=== PATIENT | male | born 1985 | race Caucasian/White ===

== ENCOUNTER 2019-11-28 14:17 | Emergency (ER) | payer OTHER ==
[~2019-11-28] VITALS: Ht 182.9 cm; Wt 113.4 kg
[~2019-11-28 14:17] MED LIST: Citrate Of Mag300 ML PO; IBUP800 PO; Norco 10-325 T1 EACH PO; OXYACE5T PO; RXOXYACE PO
[2019-11-28 21:27] LABS: Adenovirus Not Detected (NOT DETECT); Coronavirus 229E Not Detected (NOT DETECT); Coronavirus HKU1 Not Detected (NOT DETECT); Coronavirus NL63 Not Detected (NOT DETECT); Coronavirus OC43 Not Detected (NOT DETECT)
[2019-11-28 21:32] LABS: Bordetella pertussis Not Detected (NOT DETECT); Chlamydophila pneumoniae Not Detected (NOT DETECT); Human Metapneumovirus Not Detected (NOT DETECT); Human Rhinovirus/Enterovirus Not Detected (NOT DETECT); Influenza A/2009-H1 Not Detected (NOT DETECT); Influenza A/H1 Not Detected (NOT DETECT); Influenza A/H3 Not Detected (NOT DETECT); Influenza B Not Detected (NOT DETECT); Mycoplasma pneumoniae Not Detected (NOT DETECT); Parainfluenza Virus 1 Not Detected (NOT DETECT); Parainfluenza Virus 2 Not Detected (NOT DETECT); Parainfluenza Virus 3 Not Detected (NOT DETECT); Parainfluenza Virus 4 Not Detected (NOT DETECT); Respiratory Syncytial Virus Not Detected (NOT DETECT); SARS-Cov-2 (COVID-19), BioFire Detected (NOT DETECT)
[2019-11-28] MEDS ORDERED: AZIT250 PO (21:47)
[2019-11-28] MEDS ORDERED: Tessalon200 MG PO (21:47)
== END 2019-11-28 22:15 | disposition home or self-care (01) ==
LOC: ER 14:17
PROVIDERS: Physician Assistant
DX: U07.1 COVID-19 (principal); R05 Cough; R09.02 Hypoxemia; Z79.899 Other long term (current) drug therapy
CPT/HCPCS: 0202U; 36415; 71046; 83605; 84145; 99283-25

== ENCOUNTER 2019-11-29 18:26 | Emergency (ER) | payer OTHER ==
[~2019-11-29] VITALS: Ht 182.9 cm; Wt 113.4 kg
[~2019-11-29 18:26] MED LIST changes: +AZIT250 PO; +Tessalon200 MG PO
== END 2019-11-29 19:08 | disposition home or self-care (01) ==
LOC: ER 18:26
DX: U07.1 COVID-19 (principal); Z79.899 Other long term (current) drug therapy
CPT/HCPCS: 99283

== ENCOUNTER 2020-08-19 21:25 | Emergency (ER) | payer OTHER ==
[~2020-08-19] VITALS: Ht 182.9 cm; Wt 111.1 kg
[~2020-08-19 21:25] MED LIST changes: +LIDO700A20 TOP; +NAPR500 PO; +Norco 5-325 Ta1 EACH PO
== END 2020-08-20 00:29 | disposition home or self-care (01) ==
LOC: ER 21:25
DX: S46.912A Strain of unspecified muscle, fascia and tendon at shoulder and upper arm level, left arm, initial encounter (principal); X58.XXXA Exposure to other specified factors, initial encounter; Y93.15 Activity, underwater diving and snorkeling
CPT/HCPCS: 73030; 99283-25; A9270

== ENCOUNTER 2021-04-02 12:59 | Emergency (ER) | payer OTHER ==
[~2021-04-02] VITALS: Ht 182.9 cm; Wt 113.4 kg
[2021-04-02 14:46] LABS: BASOPHILS ABSOLUTE AUTO 0.06 K/mm3 (0.00-0.23); BASOPHILS PERCENT AUTO 0 % (0-2); EOSINOPHILS PERCENT AUTO 1 % (0-6); Hematocrit 47.8 % (37.0-53.0); Hemoglobin 16.3 g/dL (13.5-17.5); IMMATURE GRAN ABSOLUTE AUTO 0.04 K/mm3 (0.00-0.10); IMMATURE GRAN PERCENT AUTO 0 % (0-1); LYMPHOCYTES ABSOLUTE AUTO 2.39 K/mm3 (0.84-5.20); LYMPHOCYTES PERCENT AUTO 18 % (21-46); MONOCYTES ABSOLUTE AUTO 1.01 K/mm3 (0.16-1.47); MONOCYTES PERCENT AUTO 8 % (4-13); Mean Corpuscular HGB 28.9 pg (26.0-34.0); Mean Corpuscular HGB Conc 34.1 g/dL (31.5-36.5); Mean Corpuscular Volume 85 fL (80-100); Mean Platelet Volume 10.2 fL (9.1-12.4); NEUTROPHILS ABSOLUTE AUTO 9.74 K/mm3 (1.96-9.15); NEUTROPHILS PERCENT AUTO 73 % (41-73); Platelet Count 316 K/mm3 (150-400); RDW Coefficient Variation 12.2 % (11.7-14.2); RDW Standard Deviation 37.2 fL (35.1-46.3); Red Blood Cell Count 5.64 M/mm3 (4.30-5.90); White Blood Cell Count 13.34 K/mm3 (4.00-11.30)
[2021-04-02 15:03] LABS: Alanine Aminotransfer (ALT/SGP 77 U/L (12-78); Albumin, Blood 4.2 g/dL (3.4-5.0); Alk Phos 90 U/L (50-136); Anion Gap 6 mmol/L (6-16); Aspartate Aminotrans (AST/SGOT 30 U/L (12-37); Bilirubin, Total 0.9 mg/dL (0.1-1.0); Blood Urea Nitrogen 16 mg/dL (8-24); Bun/Creatinine Ratio 15.4 (12.0-20.0); CO2, Blood 25 mmol/L (21-32); Calcium, Blood 9.3 mg/dL (8.5-10.1); Chloride, Blood 107 mmol/L (98-108); Creatinine, Blood 1.04 mg/dL (0.60-1.20); Glomerular Filtration Rate >60 (60-); Glucose, Blood 109 mg/dL (70-99); Potassium, Blood 3.5 mmol/L (3.5-5.5); Sodium, Blood 138 mmol/L (136-145); Total Protein, Blood 8.2 g/dL (6.4-8.2)
[2021-04-02] MEDS ORDERED: ONDA4 PO (15:57)
[2021-04-02] MEDS ORDERED: Norco 5-325 Ta1 EACH PO (15:57)
== END 2021-04-02 16:40 | disposition home or self-care (01) ==
LOC: ER 12:59
PROVIDERS: Physician Assistant
DX: S51.011A Laceration without foreign body of right elbow, initial encounter (principal); S30.1XXA Contusion of abdominal wall, initial encounter; S00.81XA Abrasion of other part of head, initial encounter; R04.0 Epistaxis; V89.9XXA Person injured in unspecified vehicle accident, initial encounter; F17.210 Nicotine dependence, cigarettes, uncomplicated
CPT/HCPCS: 36415; 70450; 70486; 71045; 73080; 74177; 80053; 83690; 85025; 90714; J2270; J2405; J7030; Q9967

== ENCOUNTER 2023-11-13 10:25 | Emergency (ER) | payer OTHER ==
[~2023-11-13] VITALS: Ht 182.9 cm; Wt 109.8 kg
[~2023-11-13 10:25] MED LIST changes: +ONDA4 PO
[2023-11-13 10:32] VITALS: BP 182/150
[2023-11-13] MEDS ORDERED: Diphth,Pertuss(Acell),Tet Vac 0.5 ML VIAL IM ONE (10:35)
== END 2023-11-13 12:17 | disposition home or self-care (01) ==
LOC: ER 10:25
DX: S81.011A Laceration without foreign body, right knee, initial encounter (principal); W22.8XXA Striking against or struck by other objects, initial encounter; Z79.899 Other long term (current) drug therapy
CPT/HCPCS: 73590; 90471; 90715; 99283-25